=== PATIENT | female | born 1945 | race American Indian/Alaskan Native ===

== ENCOUNTER 2017-04-23 09:20 | Outpatient (CLI) | payer MEDICARE ==
--- NOTE | 2017-04-23 10:11 | Mammography Report ---
Screening unilateral mammogram: Left mastectomy. Routine views of the right breast demonstrates a diffuse distribution of intermediate density fibroglandular tissue. Surgical clip is noted in the upper outer right breast. There is no nodule in no architectural distortion. Compared to prior examinations dating back to 2015 there are no significant changes identified. CAD used. Impression: Stable right breast pattern. Recommendation: Annual mammogram followup. BI-RADS CATEGORY: 1 = Negative ACR BI-RADS MAMMOGRAPHIC CODES: 0 = Needs additional imaging evaluation; 1 = Negative; 2 = Benign; 3 = Probably benign; 4 = Suspicious; 5 = Malignant; 6 = Known biopsy-proven malignancy COMMENT: 1. Dense breast tissue, i.e., adenosis, fibrocystic changes, etc., may obscure an underlying neoplasm. 2. Approximately 10% of cancers are not detected with mammography. 3. A negative mammography report should not delay biopsy if a clinically suspicious mass is present.
== END 2017-04-23 09:21 | disposition home or self-care (01) ==
LOC: MAMMO 09:20
PROVIDERS: ATTEND Internal Medicine Hematology & Oncology
DX: Z12.31 Encounter for screening mammogram for malignant neoplasm of breast (principal); I10 Essential (primary) hypertension; E78.00 Pure hypercholesterolemia, unspecified
CPT/HCPCS: G0202-52

== ENCOUNTER 2017-06-09 09:49 | Outpatient (CLI) | payer MEDICARE ==
--- NOTE | 2017-06-09 10:30 | XRay Report ---
Chest 2 views. History: Breast cancer. Findings: The heart and pulmonary vessels are normal. The lungs are clear. There is no pleural fluid. No significant bony changes are seen. Impression: No acute findings.
== END 2017-06-09 09:50 | disposition home or self-care (01) ==
LOC: SPVIMAG 09:49
PROVIDERS: ATTEND Internal Medicine Hematology & Oncology
DX: R07.81 Pleurodynia (principal); C50.812 Malignant neoplasm of overlapping sites of left female breast; I10 Essential (primary) hypertension
CPT/HCPCS: 71020

== ENCOUNTER 2017-12-22 07:45 | Outpatient (CLI) | payer MEDICARE ==
--- NOTE | 2017-12-22 13:38 | Nuclear Medicine Report ---
Whole-body bone scan: Left breast cancer. Following injection radionuclide whole-body imaging obtained at 3 hours demonstrates normal activity in the urinary tract in a relatively good bone to background ratio. Focal increased radiotracer uptake is identified in the medial left clavicle and in the pedicle locations of the right T11, T12, and L1 levels and on the left at T12 and L5. Scattered knee activity is seen bilaterally. Impression: The distribution of abnormal radionuclide uptake is more consistent with degenerative disease than metastatic disease.
--- NOTE | 2017-12-22 14:04 | Cat Scan Report ---
CT chest, abdomen, pelvis, with contrast: Left breast cancer. Transverse images are obtained from the thoracic inlet to the ischium with coronal and sagittal 2-D reformatted images. No prior exams at our institution. There is a left mastectomy with implant. The chest wall is otherwise remarkable. No obvious axillary mediastinal nor hilar adenopathy. The central airways are patent. There is atelectasis/scarring involving the medial right lung adjacent to the pleura at the costophrenic recess and overlying the spine. The remainder of the right lung is unremarkable. The volume of the left lung is less than the right which in part may be due to the apparent mild cardiac enlargement. Other findings however include thickening of the pleura posteriorly with segmental calcification along its surface. Several pleural based nodules are also identified in the mid and lower lung posteriorly. There is hazy increased lung parenchyma posteriorly in the midlung and at the lung base there scars related to the lateral and anterior pleura. Sections carried into the abdomen demonstrates a linear collection of calcifications along the anterior superior margin of the liver. There is also a thick linear area of decreased attenuation involving the right lobe. There are bilateral circumscribed lucencies in both kidneys consistent with cysts. The abdominal and retroperitoneal structures are not otherwise remarkable. There is no adenopathy appreciated. The unopacified bowel and mesentery appears grossly normal. There is significant atherosclerosis involving the aorta and iliac branches. There are no lytic or blastic lesions in the generalized osteopenic bones to suspect metastasis however there are significant thoracic and lumbar spurs as well as apophyseal degenerative changes at multiple levels in the lower thoracic and lumbar levels. There is virtual loss of the L4-5 disc space. Impression: 1. Left mastectomy with implant. 2. Abnormal left lung and pleura. The findings suggest that this patient may have a history of prior lung/pleural disease although the possibility of that the nodular changes could represent metastasis cannot be absolutely excluded. Correlate with patient history and possible prior CT exams. 3. Degenerative bone changes. No metastases suspected.
== END 2017-12-22 07:46 | disposition home or self-care (01) ==
LOC: NM 07:45
PROVIDERS: ATTEND Internal Medicine Hematology & Oncology
DX: K76.89 Other specified diseases of liver (principal); I70.0 Atherosclerosis of aorta; M47.895 Other spondylosis, thoracolumbar region; R91.8 Other nonspecific abnormal finding of lung field; I10 Essential (primary) hypertension; Z90.12 Acquired absence of left breast and nipple; Z98.82 Breast implant status
CPT/HCPCS: 71260; 74177; 78306; A9503; Q9967

== ENCOUNTER → 2018-04-27 | Outpatient (CLI) | payer MEDICARE ==
--- NOTE | 2018-04-28 10:30 | Mammography Report ---
RIGHT DIGITAL SCREENING MAMMOGRAM with CAD: 04/27/18 10:04:00 CLINICAL: Routine screening. Breast cancer survivor status post left mastectomy. COMPARISON:04/23/17 and 04/23/15 FINDINGS: The breast is heterogeneously dense, which may obscure small masses. Upper outer biopsy clip. A 1.2 cm oval smooth outer cyst has waxed and waned over several exams.No mass, architectural distortion or suspicious calcifications. IMPRESSION: No mammographic evidence of malignancy. BI-RADS CATEGORY: 2 -- Benign RECOMMENDATION: Routine screening in one year. ACR BI-RADS MAMMOGRAPHIC CODES: 0 = Needs additional imaging evaluation; 1 = Negative; 2 = Benign; 3 = Probably benign; 4 = Suspicious; 5 = Malignant; 6 = Known biopsy-proven malignancy COMMENT: 1. Dense breast tissue, i.e., adenosis, fibrocystic changes, etc., may obscure an underlying neoplasm. 2. Approximately 10% of cancers are not detected with mammography. 3. A negative mammography report should not delay biopsy if a clinically suspicious mass is present. COMMENT: Patient follow-up letters are generated via our [employer] application.
== END | disposition home or self-care (01) ==
LOC: MAMMO 10:04
PROVIDERS: ATTEND Internal Medicine Hematology & Oncology
DX: Z12.31 Encounter for screening mammogram for malignant neoplasm of breast (principal); E78.00 Pure hypercholesterolemia, unspecified; I10 Essential (primary) hypertension; K21.9 Gastro-esophageal reflux disease without esophagitis; Z90.710 Acquired absence of both cervix and uterus; Z88.6 Allergy status to analgesic agent; Z88.0 Allergy status to penicillin; Z90.722 Acquired absence of ovaries, bilateral; Z90.12 Acquired absence of left breast and nipple